=== PATIENT | female | born 1965 | race Two or more races ===

== ENCOUNTER 2019-06-03 04:45 | Day surgery (SDC) | payer OTHER ==
[~2019-06-03 04:45] MED LIST: CIMBALTA PO; SYNTHROID75 MCG PO; [UNRECOGNIZED DRUG - OTHER] PO
== END 2019-06-03 13:15 | disposition home or self-care (01) ==
LOC: CIR.AMB 04:45
DX: N95.0 Postmenopausal bleeding (principal)

== ENCOUNTER 2025-01-10 08:48 | Day surgery (SDC) | payer OTHER ==
[2025-01-03 09:51] VITALS: BP 108/74
[~2025-01-10] VITALS: Ht 152.4 cm; Wt 89.8 kg
[~2025-01-10 08:48] MED LIST changes: +LODINE300 MG; +SAXENDA3 MG/0.5 M
[2025-01-10] MEDS ORDERED: METRONIDAZOLE/SODIUM CHLORIDE 500 MG/100 ML PIGGYBACK IV ONE ×2 (09:21→15:45)
[2025-01-10] MEDS ORDERED: BUPIVACAINE LIPOSOME/PF 266 MG/20 ML VIAL IJ ONE ×2 (15:20→15:45)
[2025-01-10] MEDS ORDERED: TRIAMCINOLONE ACETONIDE 40 MG/ML VIAL ONE (16:26)
[2025-01-10] MEDS ORDERED: TRIAMCINOLONE ACETONIDE 40 MG/ML VIAL IJ ONE (16:45)
== END 2025-01-10 21:55 | disposition home or self-care (01) ==
LOC: CIR.AMB 08:48
PROVIDERS: ATTEND Colon & Rectal Surgery
DX: K64.2 Third degree hemorrhoids (principal); K64.4 Residual hemorrhoidal skin tags; K62.2 Anal prolapse; L91.0 Hypertrophic scar